=== PATIENT | male | born 1970 | race Caucasian/White ===

== ENCOUNTER 2019-02-05 09:55 | Day surgery (SDC) | payer OTHER ==
[~2019-02-05] VITALS: Ht 177.8 cm; Wt 101.2 kg
[~2019-02-05 09:55] MED LIST: Percocet 5-3251 EACH PO
--- NOTE | 2019-02-05 16:13 | NUR ---
02/05/[address] ORDERED AN UPPER GI. PROCEDURE SCHEDULED THROUGH [facility] FOR PT. APPOINTMENT SCHEDULED FOR Tuesday AT 0830A.M. AT [facility]. PT. REMINDED NOT TO EAT OR DRINK ANYTHING AFTER [place] PRIOR TO HIS PROCEDURE, PT. WITH UNDERSTANDING OF INSTRUCTIONS FOR APPOINTMENT FOR UPPER GI & FOR HOME INSTRUCTIONS. PT.'S ALSO AT BEDSIDE LISTENING TO INSTRUCTIONS. PT. REMINDED TO CALL DR. GONZALEZ'S OFFICE IF THEY HAD ANY QUESTIONS.
== END 2019-02-05 12:40 | disposition home or self-care (01) ==
LOC: ORSCSDS 09:55
PROVIDERS: Internal Medicine Gastroenterology
PROC: 0DB58ZX Excision of Esophagus, Via Natural or Artificial Opening Endoscopic, Diagnostic (ICD-10-PCS; principal; 2019-02-05 11:15)
PROC: 0DB68ZX Excision of Stomach, Via Natural or Artificial Opening Endoscopic, Diagnostic (ICD-10-PCS; principal; 2019-02-05 11:15)
PROC: 0D757ZZ Dilation of Esophagus, Via Natural or Artificial Opening (ICD-10-PCS; principal; 2019-02-05 11:15)
DX: R13.10 Dysphagia, unspecified (principal); K22.10 Ulcer of esophagus without bleeding; K31.7 Polyp of stomach and duodenum; J45.909 Unspecified asthma, uncomplicated; E66.9 Obesity, unspecified; Z68.31 Body mass index [BMI] 31.0-31.9, adult; Z87.891 Personal history of nicotine dependence; Z79.899 Other long term (current) drug therapy
CPT/HCPCS: 88305; 88312; J2704; J7120

== ENCOUNTER → 2019-02-21 | Outpatient (CLI) | payer OTHER ==
[2019-02-22 14:41] LABS: Stool Occult Bld Immuno 1 Negative (NEGATIVE); Stool Occult Bld Immuno 2 Negative (NEGATIVE)
== END | disposition home or self-care (01) ==
LOC: LAB 12:10 → LAB SHORT 12:10 → LAB FUT 02-03 14:00
PROVIDERS: Internal Medicine Gastroenterology
DX: D64.9 Anemia, unspecified (principal)
CPT/HCPCS: 82274

== ENCOUNTER 2019-04-23 07:17 | Day surgery (SDC) | payer OTHER ==
[~2019-04-23] VITALS: Ht 177.8 cm; Wt 101.4 kg
[~2019-04-23 07:17] MED LIST changes: +OMEPRAZOLE20 MG PO
== END 2019-04-23 10:00 | disposition home or self-care (01) ==
LOC: ORSCSDS 07:17
PROVIDERS: Internal Medicine Gastroenterology
PROC: 0DBH8ZX Excision of Cecum, Via Natural or Artificial Opening Endoscopic, Diagnostic (ICD-10-PCS; principal; 2019-04-23 09:00)
DX: D50.9 Iron deficiency anemia, unspecified (principal); K21.9 Gastro-esophageal reflux disease without esophagitis; J45.909 Unspecified asthma, uncomplicated
CPT/HCPCS: 88305; J0461; J2405; J2704; J7120

== ENCOUNTER → 2019-07-13 | Outpatient (CLI) | payer OTHER ==
[2019-07-18 15:07] LABS: Stool Occult Bld Immuno 1 Negative (NEGATIVE); Stool Occult Bld Immuno 2 Negative (NEGATIVE)
== END | disposition home or self-care (01) ==
LOC: LAB SHORT 13:58 → OLS 13:58 → LAB FUT 05-23 14:40 → EDSTATUS 05-23 14:40
PROVIDERS: Internal Medicine Gastroenterology
DX: D50.9 Iron deficiency anemia, unspecified (principal)
CPT/HCPCS: 82274